=== PATIENT | female | born 1955 | race Caucasian/White ===

== ENCOUNTER → 2017-03-13 | Outpatient (CLI) | payer BC ==
--- NOTE | 2017-03-13 14:10 | DI ---
LEFT FOOT, 03/13/2017 12:08 PM: Clinical History: Injury. Previous Exam: None at this facility. 3 weightbearing views are submitted. There is a fracture through the proximal third of the proximal p halanx of the fourth toe. There is one half bone shaft diameter lateral displacement of the distal fr acture fragment. The remainder of the examination is normal. Reading: Fracture of the proximal third of the proximal phalanx of the fourth toe with lateral displacement of the distal fracture fragment.
== END ==
LOC: MOB RAD 12:09
PROVIDERS: ATTEND Physician Assistant Medical
DX: S99.822A Other specified injuries of left foot, initial encounter (principal); S92.512A Displaced fracture of proximal phalanx of left lesser toe(s), initial encounter for closed fracture; W54.1XXA Struck by dog, initial encounter; Y93.89 Activity, other specified
CPT/HCPCS: 73630

== ENCOUNTER → 2017-03-18 | Outpatient (CLI) | payer BC ==
--- NOTE | 2017-03-18 21:32 | DI ---
LEFT FOOT, 03/18/2017 3:11 PM: Clinical History: Fracture of the left foot, closed. Previous Exam: 03/13/2017. 3 views are submitted. There is a fracture through the proximal third of the proximal phalanx of the fourth toe. On the AP projection, there is one half bone shaft diameter lateral displacement of the d istal fracture fragment. On the reversal oblique projection, there is approximately 20-25 degrees krystle javi angulation of the distal fracture fragment. The remainder of the examination is normal. Reading: Fracture of the proximal phalanx of the fourth toe with lateral displacement and dorsal angulation of the distal fracture fragment as above.
== END ==
LOC: ORTHO 15:22
PROVIDERS: ATTEND Orthopaedic Surgery
DX: S92.512D Displaced fracture of proximal phalanx of left lesser toe(s), subsequent encounter for fracture with routine healing (principal)
CPT/HCPCS: 73630